=== PATIENT | male | born 1950 | race Caucasian/White ===

== ENCOUNTER 2018-12-14 07:53 | Day surgery (SDC) | payer OTHER ==
--- NOTE | 2018-12-13 20:28 | PDGENHP ---
History & Physical Chief Complaint: Right shoulder loose body, impingement, biceps tendinitis, RC tendinitis History of Present Illness: Сергей is a pleasant 68 year old male with: 1. Advanced right shoulder GH osteoarthritis with assoicated multiple, large loose bodies. 2. Biceps long head tendinosis and partial tearing. 3. Posterior glenoid labrum tearing. 4. RC tendonitis and partial tearing in the setting of subacromial impingement anatomy. He underwent conservative treatment and has persistent symptoms. He would like to proceed with surgical intervention. Pertinent Past, Social, Family History: PMH: HTN osteoperosis. FH: non- contributory. SH: non-smoker Relevant Physical Exam: Physical exam of the right shoulder demonstrates 165 deg of FF, ER to 30 deg lacking 20 deg compared to the left, and IR to L23 lacking a significant amount of ROM when compared to the left at T6. He has 5/5 strength to biceps, triceps, ER, IR, and SS test. He has 5-/5 strength to speeds testing with pain at the anterior shoulder. Cross chest positive for posterior shoulder pain. FAIR exam positive for pain anteriorly. TTP overlying the bicipital groove, but more so over the anterior GH joint. NTTP overlying the AC joint, greater tuberosity, and posterior GH joints. Distal NVI. Cardiorespiratory Assessment: CTAB, RRR
[2018-12-14] MEDS ORDERED: BUPIVACAINE/EPI 0.5% 30 ML SDV ONE ×2 (07:58→08:01)
[2018-12-14] MEDS ORDERED: EPINEPHrine 30 MG/30 ML MDV (0.1 MG/0.1 ML) ONE (07:59)
[2018-12-14] MEDS ORDERED: THROMBIN (BOVINE) 5,000 UNIT VIAL TP ONE (07:59)
[2018-12-14] MEDS ORDERED: CALCIUM CHLORIDE 1 GM/10 ML INJ ONE (07:59)
[2018-12-14] MEDS ORDERED: LR 1,000 ML IV SCH (08:15)
[2018-12-14] MEDS ORDERED: ceFAZolin 2 GM/DEXTROSE 100 ML IV ONE (08:15)
[2018-12-14] MEDS ORDERED: LR 1,000 ML IV ONE ×2 (08:16→08:26)
[2018-12-14] MEDS ORDERED: LIDOCAINE 1% 2 ML INJ ID PRN (08:26)
[2018-12-14] MEDS ORDERED: ROPIVACAINE HCL 150 MG/30 ML INJ ONE (08:52)
--- NOTE | 2018-12-14 09:20 | PDHPUP ---
History & Physical Update H&P update statement: This history and physical update is based on an assessment of the patient which was completed after admission or registration (within 24 hours), but prior to the surgery/procedure. H&P update: H&P reviewed & patient examined, no change in patient's condition since H&P completed
--- NOTE | 2018-12-14 09:43 | PDANEPAE ---
ANE History of Present Illness right shoulder djd, here for R total shoulder arthroscopy ANE Past Medical History - Cardiovascular History Hx Hypertension: No Hx Arrhythmias: Yes Hx Chest Pain: No Hx Coronary Artery / Peripheral Vascular Disease: No Hx CHF / Valvular Disease: No Hx Palpitations: No Cardiovascular History Comment: heart murmur. hx of arrhythmia a year ago- worked up by [facility] - Pulmonary History Hx COPD: No Hx Asthma/Reactive Airway Disease: No Hx Recent Upper Respiratory Infection: No Hx Oxygen in Use at Home: No Hx Sleep Apnea: No Sleep Apnea Screening Result - Last Documented: Negative - Neurologic History Hx Cerebrovascular Accident: No Hx Seizures: No Hx Dementia: No Neurologic History Comment: cervical stenosis- will need surgery in future with Elias - Endocrine History Hx Diabetes: No - Renal History Hx Renal Disorders: Yes Renal History Comment: hx of kidney stones - Liver History Hx Hepatic Disorders: No - Neurological & Psychiatric Hx Hx Neurological and Psychiatric Disorders: Yes Neurological / Psychiatric History Comment: mild anxiety at times - Cancer History Hx Cancer: No - Congenital Disorder History Hx Congenital Disorders: No - GI History Hx Gastrointestinal Disorders: Yes Gastrointestinal History Comment: metamucil for regularity - Other Health History Other Health History: wears glasses - Chronic Pain History Chronic Pain: Yes (right shoulder, arm pain) - Surgical History Prior Surgeries: spinal surgery d/t mass 2013. lithotripsy 2005. michelle 2003. left meniscus repair 1997 ANE Review of Systems Review of Systems: - Exercise capacity METS (RN): 4 METS ANE Patient History - Allergies Allergies/Adverse Reactions: No Known Allergies Allergy (Verified 12/09/18 10:49) - Home Medications Home Medications: TESTOSTERONE 05/19/09 [Last Taken 05/19/09] Herbals/Supplements -Info Only 12/09/18 [Last Taken 12/09/18] - NPO status NPO Since - Liquids (Date): 12/13/18 NPO Since - Liquids (Time): 21:00 NPO Since - Solids (Date): 12/13/18 NPO Since - Solids (Time): 06:00 - Smoking Hx Smoking Status: Former smoker - Family Anes Hx Family Hx Anesthesia Complications: none ANE Labs/Vital Signs - Vital Signs Blood Pressure: 146/87 Heart Rate: 56 Respiratory Rate: 16 O2 Sat (%): 97 Height: 175.26 cm Weight: 88.451 kg ANE Physical Exam - Airway Neck exam: FROM Mallampati Score: Class 1 Mouth exam: normal dental/mouth exam - Pulmonary Pulmonary: no respiratory distress, no rales or rhonchi - Cardiovascular Cardiovascular: regular rate and rhythym, no murmur, rub, or gallop - ASA Status ASA Status: II ANE Anesthesia Plan Anesthesia Plan: general endotracheal anesthesia Regional Anesthesia: single shot NB Total IV Anesthesia: No
[2018-12-14] MEDS ORDERED: MIDAZOLAM 2 MG/2 ML VIAL IVP ONE (09:48)
[2018-12-14] MEDS ORDERED: LIDOCAINE 2% 100 MG/5 ML SYR ONE (10:10)
[2018-12-14] MEDS ORDERED: ROCURONIUM 50 MG/5 ML VIAL ONE (10:10)
[2018-12-14] MEDS ORDERED: PROPOFOL 200 MG/20 ML VIAL ONE (10:11)
[2018-12-14] MEDS ORDERED: fentaNYL 100 MCG/2 ML INJ ONE (10:11)
[2018-12-14] MEDS ORDERED: HYDROmorphONE/DILAUDID 1 MG/ML INJ IVP PRN (12:12)
[2018-12-14] MEDS ORDERED: PROMETHAZINE HCL 25 MG/ML INJ IVP PRN (12:12)
[2018-12-14] MEDS ORDERED: NALOXONE HCL 0.4 MG/ML INJ IVP PRN (12:12)
[2018-12-14] MEDS ORDERED: MEPERIDINE 25 MG/0.5 ML AMP IVP PRN (12:12)
[2018-12-14] MEDS ORDERED: fentaNYL 100 MCG/2 ML INJ IVP PRN (12:12)
[2018-12-14] MEDS ORDERED: METOCLOPRAMIDE 10 MG/2 ML VIAL IVP PRN (12:12)
[2018-12-14] MEDS ORDERED: ACETAMINOPHEN 500 MG TAB PO PRN (12:12)
[2018-12-14] MEDS ORDERED: oxyCODONE IR 5 MG TAB PO PRN (12:12)
[2018-12-14] MEDS ORDERED: DIAZEPAM 10 MG/2 ML SYR IVP PRN (12:12)
[2018-12-14] MEDS ORDERED: OXYCODONE/APAP 5/325 TAB PO PRN (12:27)
[2018-12-14] MEDS ORDERED: ONDANSETRON 4 MG/2 ML VIAL IVP PRN (12:27)
--- NOTE | 2018-12-14 12:27 | POSTOPPROG ---
Post Op Note Date of Operation: 12/14/18 Surgeon: Jessica Cameron Community Chest Officer: coltraca Anesthesia: LMA, Other (Specify) Pre-op Diagnosis: r shoulder oa/impingement/bicep tendinopathy/labral tear Procedure: open r bicep tenodesis w/ scope w/ sad/ac resect/rem lb/debridement Inf/Abcess present in the surg proc area at time of surgery?: No Depth: Deep Incisional (Fascial) EBL: 50-100
--- NOTE | 2018-12-14 12:33 | POSTANESTH ---
Post Anesthetic Evaluation Cardiovascular Status: Normal, Stable Respiratory Status: Normal, Stable Level of Consciousness/Mental Status: Can Participate in Eval, Mildly Sleepy, Arousable Pain Control: Adequate, Prn Tx Ordered Nausea/Vomiting Control: Adequate, Prn Tx Ordered Complications Possibly Related to Anesthesia: None Noted (not feeling or moving the blocked UE on exam)
[2018-12-14] MEDS ORDERED: HYDROmorphONE/DILAUDID 1 MG/ML INJ ONE (13:12)
[2018-12-14 13:38] VITALS: BP 130/78
[2018-12-14] MEDS ORDERED: METOCLOPRAMIDE 10 MG/2 ML VIAL ONE (14:05)
--- NOTE | 2018-12-14 15:07 | GOP ---
[f rep st] OPERATIVE REPORT DATE OF OPERATION: 12/14/2018 SURGEON: Jessica Cameron MD DIABETES NURSE: Michael Campbell, CSFA, LSA, whose presence was medically necessary. ANESTHESIA: By LMA, plus scalene nerve block per surgeon's request. PREOPERATIVE DIAGNOSIS: Right shoulder impingement syndrome with acromioclavicular osteoarthritis, b iceps tendinopathy, partial thickness rotator cuff tear, loose bodies, and glenohumeral joint arthrit is. POSTOPERATIVE DIAGNOSIS: Right shoulder impingement syndrome with acromioclavicular osteoarthritis, biceps tendinopathy, partial thickness rotator cuff tear, loose bodies, and glenohumeral joint arthri tis with grade III chondral changes of the glenohumeral joint. PROCEDURE PERFORMED: Open right biceps tenodesis with right shoulder scope with debridement of bicep s stump, rotator cuff, and labrum, as well as chondroplasty of the glenohumeral joint and subacromial decompression with arthroscopic acromioclavicular resection. FINDINGS: INDICATIONS: This is a 68-year-old male with a several-month history of right shoulder pain worsenin g with use and with time. MRI has revealed biceps tendinopathy multiple loose bodies within the angel ohumeral joint along the biceps tendon, as well as partial-thickness tearing of the rotator cuff., si gnificant anterior acromial curve and AC osteoarthritis. He wished to have surgery in order to resol ve the problem. DESCRIPTION OF PROCEDURE: Patient was brought to the operating room after the right side had been id entified as the correct side by the patient, nurse, and physician. Once in the operating room, he wa s given a scalene block on the right side, and then placed under general anesthesia using an LMA, and once asleep, he was placed in a beach chair position with the right upper extremity sterilely preppe d and draped in usual fashion using GI/solution. Once prepped and draped, incision was made on the posterolateral corner of the acromion with the came ra introduced without difficulty. Inspection of the joint revealed abundant amount of tearing of the anterior, posterior, and superior portions of the labrum, grade III chondral changes to the glenoid, as well as the humeral head, Fraying of the rotator cuff, and fraying of the biceps; therefore using an in-to-out technique, an anterior portal was made superolateral to coracoid process with a 6 x 75 mm threaded cannula placed through the anterior portal and an arthroscopic Bovie tip was used to tomasz ve the biceps from its anchor, at which point, all instruments were removed from the shoulder joint a nd a 5 cm incision was made on the anterior portion of the shoulder with sharp dissection carried arias n through the skin and subcutaneous layers with bleeding controlled using electrocautery. Blunt dissection was carried through the deltopectoral interval down onto the biceps sheath. The bic eps sheath was incised, was released in its entirety, 1 large and 1 small loose body were removed fro m the area around the biceps tendon. The biceps tendon was pulled through the wound. #2 FiberWire w as woven into its mid portion. The stump was cut short. The remaining tendon was found to be 7 mm i n diameter; therefore, an 8 mm hole was drilled and a 9 mm [place] anchor was attached on the end of the biceps stump and attached onto the bone. Once secured securely in place, the suture was cut shor t. The wound was thoroughly irrigated with antibiotic solution and was closed in layers to include 0 Vicryl suture for the deltopectoral interval. 2-0 Vicryl suture for subcutaneous layers, and a 3-0 V -Loc suture in a running subcuticular stitch for the skin. Attention was then turned back to the shoulder. Once all instruments were reintroduced in the should er, 3.5 mm smooth shaver was used to debride and debulk the extensive tearing of the anterior, media buyer ior, and superior portions of the labrum, removed the remaining portion of the biceps attached on the anchor and the frayed portions of the rotator cuff. No through and through tear was noted in the ro tator cuff. Once completed, all instruments were removed from the shoulder and using the same portal sites, were reintroduced in subacromial space. A third incision was made 2 cm lateral to the acromial process in line with the posterior cortex of t he clavicle with the camera switched to the lateral portal. Alternating with using arthroscopic Bovi e tip and a shaver, was used to remove the abundant amount of soft tissue within the subacromial spac e in the soft tissue on the undersurface of the acromion. The patient was noted to have a short, sha rp inferior spur, and an acromionizer simba was brought through the posterior portal and used to remov e that spur, removing approximately 6 mm of bone. Attention was turned to the distal clavicle, which was also noted to have a short, sharp inferior spu r, and acromionizer simba was brought through the posterior portal and used to remove that spur , tomasz ving approximately 4 mm of bone. Once completed, 18-gauge spinal needle was used to identify the posterior portion of the AC joint. I ncision was made directly over the posterior portion of the AC joint. Acromionizer simba was used to remove the distal end of the clavicle until achieving an adequate amount room, such that a camera cou ld be introduced into the AC joint. Probe was brought from the lateral portal and used to measure th e gap in the AC joint that had been made. Once completed, all instruments were removed from the subacromial space with 30 cc of Marcaine infuse d the subacromial space. The 3 portal sites were closed using 3-0 nylon suture in a [id number] type stitch. Plasma gel was then injected into the subacromial space. The bicipital wound was then dressed with Steri-Strips, and then, all wounds were then dressed with Xeroform, 4 x 4, and Tegaderm. Patient was completely undraped in the operating room, had a sling placed on the right upper extrem ity. He was woken up, extubated, transferred onto a stretcher, and sent to recovery room in good con dition. /[id number]/MODL
== END 2018-12-14 14:39 | disposition home or self-care (01) ==
LOC: FSGY 07:53
PROVIDERS: ATTEND Orthopaedic Surgery
DX: M75.41 Impingement syndrome of right shoulder (principal); M19.011 Primary osteoarthritis, right shoulder; M75.21 Bicipital tendinitis, right shoulder; M75.101 Unspecified rotator cuff tear or rupture of right shoulder, not specified as traumatic; M75.81 Other shoulder lesions, right shoulder; M24.011 Loose body in right shoulder; I10 Essential (primary) hypertension; M48.02 Spinal stenosis, cervical region; Z87.442 Personal history of urinary calculi; Z87.891 Personal history of nicotine dependence
CPT/HCPCS: C1713; J0171; J0690; J1170; J2001; J2250; J2704; J2765; J2795; J3010